=== PATIENT | female | born 1995 | race Two or more races ===

== ENCOUNTER 2019-11-23 17:08 | Emergency (ER) | payer MEDICAID ==
[~2019-11-23] VITALS: Ht 165.1 cm; Wt 102.1 kg
[2019-11-23 18:26] LABS: ALANINE AMINOTRANSFERASE 22 U/L (12-78); ANION GAP 9 mmol/L (5-15); BASOPHILS # (AUTO) 0.04 x10^3/uL (0-0.1); BASOPHILS % (AUTO) 0 % (0-1); CALCIUM 9.2 mg/dL (8.5-10.1); CHLORIDE 106 mmol/L (98-107); EOSINOPHILS # (AUTO) 0.03 x10^3/uL (0-0.4); EOSINOPHILS % (AUTO) 0 % (1-7); LYMPHOCYTES # (AUTO) 2.38 x10^3/uL (1-3.4); LYMPHOCYTES % (AUTO) 19 % (22-44); MD NO; MEAN CORPUSCULAR HEMOGLOBIN 29.9 pg (27.0-34.8); MEAN CORPUSCULAR HGB CONC 33.5 g/dL (32.4-35.8); MEAN CORPUSCULAR VOLUME 89.1 fL (80-100); MEAN PLATELET VOLUME 9.4 fL (7.4-10.4); MONOCYTES # (AUTO) 0.64 x10^3/uL (0.2-0.8); MONOCYTES % (AUTO) 5 % (2-9); NEUTROPHILS # (AUTO) 9.49 x10^3/uL (1.8-6.8); NEUTROPHILS % (AUTO) 75 % (42-75); PLATELET COUNT 306 x10^3/uL (130-400); RED BLOOD COUNT 4.11 x10^6/uL (3.82-5.3); RED CELL DISTRIBUTION WIDTH 14.4 % (9.6-15.2)
[2019-11-23 18:30] LABS: ALKALINE PHOSPHATASE 70 U/L (45-117); BILIRUBIN,TOTAL 0.3 mg/dL (0.2-1.0); TOTAL PROTEIN 7.3 g/dL (6.4-8.2); TROPONIN I < 0.015 ng/mL (0.000-0.045)
[2019-11-23 18:40] LABS: MICROSCOPIC INDICATED
--- NOTE | 2019-11-23 18:45 | NUR ---
PT STATES HELLER, FATIGUE FOR 3 WEEKS WITH OCCASIONAL SHARP PAIN RLQ. YESTERDAY CHEST HEAVINESS DEVELOPED WITH MULTIPLE EPISODES OF FEELING LIKE SHE IS ONLY SEEING BLACK AND CANNOT HEAR ANYTHING.
--- NOTE | 2019-11-23 18:52 | NUR ---
BEDSIDE REPORT FROM KIKO CHERRY
[2019-11-23] MEDS ORDERED: PRE NATAL (19:20)
[2019-11-23] MEDS ORDERED: CEFTRIAXONE PMX 1GM/50ML 50 ML ONE (19:26)
[2019-11-23] MEDS ORDERED: ACETAMINOPHEN 500 MG TABLET ONE (19:26)
[2019-11-23] MEDS ORDERED: ACETAMINOPHEN 500 MG TABLET PO ONE (19:30)
[2019-11-23] MEDS ORDERED: CEFTRIAXONE PMX 1GM/50ML 50 ML IV ONE (19:30)
[2019-11-23] MEDS ORDERED: DIPHENHYDRAMINE 25 MG CAPSULE ONE (19:37)
[2019-11-23] MEDS ORDERED: SODIUM CHLORIDE 0.9% 1,000ML IVBOLUS ONE (20:00)
[2019-11-23] MEDS ORDERED: DIPHENHYDRAMINE 25 MG CAPSULE PO ONE (20:00)
--- NOTE | 2019-11-23 20:18 | NUR ---
I ORDERED LACTIC ACID SEPSIS
[2019-11-23] MEDS ORDERED: ONDANSETRON 2MG/ML, 2ML ONE (20:58)
[2019-11-23] MEDS ORDERED: ONDANSETRON 2MG/ML, 2ML IVPush ONE (21:00)
--- NOTE | 2019-11-23 21:14 | NUR ---
L&D CALLED. TO SEND RN DOWN FOR HEART TONES.
--- NOTE | 2019-11-23 21:34 | NUR ---
L&D DETECTED NO HEART TONES. PT TO CT AT THIS TIME. Addendum: 11/23/19 at 2135 by [facility] L&D KIKO VELASQUEZ
[2019-11-23] MEDS ORDERED: OMNIPAQUE 350 MG/ML, 75ML BOTTLE ONE (21:47)
[2019-11-23 22:39] VITALS: BP 121/61
== END 2019-11-23 23:01 | disposition home or self-care (01) ==
LOC: ED 20:13
DX: O23.12 Infections of bladder in pregnancy, second trimester (principal); R06.00 Dyspnea, unspecified; R07.89 Other chest pain; Z87.891 Personal history of nicotine dependence; Z3A.18 18 weeks gestation of pregnancy
CPT/HCPCS: 36415; 71046; 71275; 76700; 80053; 81001; 83605; 83690; 84484; 85025; 87040; 87086; 93005; 96365; 96366; 96375; 99285; J0696; J2405; J7030; Q0163; Q9967

== ENCOUNTER 2020-01-22 20:41 | Outpatient (CLI) | payer MEDICAID ==
[~2020-01-22] VITALS: Ht 165.1 cm; Wt 101.0 kg
[~2020-01-22 20:41] MED LIST: PRE NATAL
[2020-01-22 21:31] LABS: MICROSCOPIC INDICATED
== END 2020-01-22 22:00 | disposition home or self-care (01) ==
LOC: LDOP 20:41
PROVIDERS: ATTEND Obstetrics & Gynecology
DX: O16.2 Unspecified maternal hypertension, second trimester (principal); Z3A.26 26 weeks gestation of pregnancy
CPT/HCPCS: 81001; 82570; 84156; 87086; 99211; G0463

== ENCOUNTER 2020-04-10 13:06 | Inpatient (IN) | payer MEDICAID ==
[~2020-04-10] VITALS: Ht 165.1 cm; Wt 104.5 kg
[2020-04-10 13:45] VITALS: BP 131/87
[2020-04-10 14:03] LABS: BASOPHILS % (AUTO) 0 % (0-1); EOSINOPHILS % (AUTO) 1 % (1-7); LYMPHOCYTES % (AUTO) 18 % (22-44); MEAN CORPUSCULAR HEMOGLOBIN 27.2 pg (27.0-34.8); MEAN PLATELET VOLUME 9.6 fL (7.4-10.4); MONOCYTES % (AUTO) 8 % (2-9); NEUTROPHILS % (AUTO) 74 % (42-75); PLATELET COUNT 267 x10^3/uL (130-400); RED BLOOD COUNT 3.91 x10^6/uL (3.82-5.3); RED CELL DISTRIBUTION WIDTH 14.9 % (9.6-15.2)
[2020-04-10 14:06] LABS: MD NO
[2020-04-10 14:07] LABS: ALANINE AMINOTRANSFERASE 11 U/L (12-78); ALBUMIN 2.7 g/dL (3.4-5.0); ANION GAP 6 mmol/L (5-15); CALCIUM 9.5 mg/dL (8.5-10.1); CHLORIDE 113 mmol/L (98-107); CREATININE 0.51 mg/dL (0.55-1.02)
[2020-04-10 14:09] LABS: ALKALINE PHOSPHATASE 154 U/L (45-117); BILIRUBIN,TOTAL 0.3 mg/dL (0.2-1.0); TOTAL PROTEIN 6.9 g/dL (6.4-8.2)
[2020-04-10 14:43] LABS: MICROSCOPIC INDICATED
[2020-04-10] MEDS ORDERED: MISOPROSTOL 25 MCG TABLET ONE ×2 (16:36→21:55)
[2020-04-10] MEDS ORDERED: LIDOCAINE 1%, 20ML ONE ×2 (16:36→16:38)
[2020-04-10] MEDS ORDERED: MISOPROSTOL 200 MCG TABLET ONE (16:36)
[2020-04-10] MEDS ORDERED: NEWBORN KIT ONE (16:36)
[2020-04-10] MEDS ORDERED: OXYTOCIN 30U/ 0.9% NaCL 500ML 500 ML ONE (16:37)
[2020-04-10] MEDS ORDERED: MISOPROSTOL 25 MCG TABLET VG PRN ×2 (18:30→22:00)
[2020-04-10] MEDS ORDERED: FENTANYL PF 100 MCG/2ML IV PRN (18:30)
[2020-04-10] MEDS: LACTATED RINGERS 1,000 ML IV SCH (18:30)
[2020-04-10] MEDS ORDERED: FENTANYL PF 100 MCG/2ML IVPush PRN (18:30)
[2020-04-10] MEDS ORDERED: OXYTOCIN 30U/ 0.9% NaCL 500ML 500 ML IV PRN ×2 (18:30)
[2020-04-10] MEDS ORDERED: SODIUM CHLORIDE FLUSH 10ML SYR IVF PRN (18:30)
[2020-04-10] MEDS ORDERED: TERBUTALINE 1 MG/ML, 1ML IVPush PRN (18:30)
[2020-04-10] MEDS ORDERED: TERBUTALINE 1 MG/ML, 1ML SQ PRN (18:30)
[2020-04-10] MEDS ORDERED: OXYTOCIN 30U/ 0.9% NaCL 500ML 500 ML IV ONE (18:30)
[2020-04-10] MEDS ORDERED: ACYCLOVIR 400 MG TABLET ONE (20:24)
[2020-04-10] MEDS: ACYCLOVIR 800 MG TABLET PO SCH (20:27)
[2020-04-10] MEDS ORDERED: INSULIN GLARGINE 100 UNITS/ML, PEN SQ-INSULIN SCH (21:00)
[2020-04-10] MEDS ORDERED: VALACYCLOVIR 500MG TABLET PO SCH (21:00)
[2020-04-11] MEDS: LACTATED RINGERS 1,000 ML IV SCH (02:30)
[2020-04-11] MEDS ORDERED: FENTANYL PF 100 MCG/2ML ONE (02:38)
[2020-04-11] MEDS ORDERED: FENTANYL/BUPIV./NS/PF 250 ML EPIDCONT ONE (03:15)
[2020-04-11] MEDS ORDERED: BUPIVACAINE 0.25% ONE (03:15)
[2020-04-11] MEDS ORDERED: HYDROcodone/APAP 5/325 TABLET PO PRN (06:00)
[2020-04-11] MEDS ORDERED: MEASLES,MUMPS&RUBELLA VACC/PF 0.5 ML SQ-VACC PRN (06:00)
[2020-04-11] MEDS ORDERED: RHOGAM FROM BLOOD BANK 1 NOTE EA IM/IV ONE (06:00)
[2020-04-11] MEDS ORDERED: OXYTOCIN 30U/ 0.9% NaCL 500ML 500 ML IV SCH (06:00)
[2020-04-11] MEDS ORDERED: MISOPROSTOL 200 MCG TABLET PR PRN (06:00)
[2020-04-11] MEDS ORDERED: ACETAMINOPHEN 325 MG TABLET PO PRN ×2 (06:00)
[2020-04-11] MEDS ORDERED: MAGNESIUM HYDROXIDE 8%, 30ML UDC PO PRN (06:00)
[2020-04-11] MEDS ORDERED: ONDANSETRON 2MG/ML, 2ML IVPush PRN (07:00)
[2020-04-11] MEDS ORDERED: FENTANYL/BUPIV./NS/PF 250 ML EPIDCONT SCH (07:00)
[2020-04-11] MEDS ORDERED: LACTATED RINGERS 1,000 ML IV SCH (07:00)
[2020-04-11] MEDS ORDERED: LACTATED RINGERS 1,000 ML IVBOLUS PRN (07:00)
[2020-04-11] MEDS ORDERED: DIPHENHYDRAMINE 50 MG/ML, 1ML IVPush PRN (07:00)
[2020-04-11] MEDS ORDERED: EPHEDRINE 50 MG/ML, 1ML IVPush PRN (07:00)
[2020-04-11] MEDS ORDERED: NALOXONE 0.4 MG/ML, 1ML IVPush PRN (07:00)
[2020-04-11 07:30] VITALS: BP 132/84
[2020-04-11] MEDS: IBUPROFEN 600 MG TABLET PO PRN ×3 (07:46→20:45)
[2020-04-11] MEDS: DOCUSATE 100 MG CAPSULE PO PRN (07:46)
[2020-04-11] MEDS: HYDROcodone/APAP 5/325 TABLET PO PRN ×2 (07:46→20:45)
[2020-04-11] MEDS: PRENATAL VIT/IRON/FA 1 EACH TABLET PO SCH (07:47)
[2020-04-11] MEDS: ACYCLOVIR 800 MG TABLET PO SCH (09:00)
[2020-04-11] MEDS: LEVOTHYROXINE 88 MCG TABLET PO SCH (09:24)
[2020-04-11 12:30] VITALS: BP_SYST 100; BP_SYST 117; BP_DIAS 65; BP_DIAS 75
[2020-04-11 13:25] LABS: BASOPHILS % (AUTO) 0 % (0-1); EOSINOPHILS % (AUTO) 0 % (1-7); LYMPHOCYTES % (AUTO) 15 % (22-44); MEAN CORPUSCULAR HEMOGLOBIN 27.5 pg (27.0-34.8); MEAN CORPUSCULAR HGB CONC 32.4 g/dL (32.4-35.8); MEAN PLATELET VOLUME 9.5 fL (7.4-10.4); MONOCYTES % (AUTO) 7 % (2-9); NEUTROPHILS % (AUTO) 78 % (42-75); PLATELET COUNT 250 x10^3/uL (130-400); RED BLOOD COUNT 3.69 x10^6/uL (3.82-5.3); RED CELL DISTRIBUTION WIDTH 15.1 % (9.6-15.2)
[2020-04-11 13:33] LABS: MD NO
[2020-04-11 16:00] VITALS: BP 133/86
[2020-04-11 20:00] VITALS: BP 121/76
[2020-04-12 01:00] VITALS: BP 124/74
[2020-04-12 04:40] VITALS: BP 134/88
[2020-04-12] MEDS: IBUPROFEN 600 MG TABLET PO PRN ×3 (04:40→17:43)
[2020-04-12] MEDS: HYDROcodone/APAP 5/325 TABLET PO PRN ×3 (04:40→14:44)
[2020-04-12] MEDS: LEVOTHYROXINE 88 MCG TABLET PO SCH (04:43)
[2020-04-12 07:30] VITALS: BP 115/75
[2020-04-12] MEDS: DOCUSATE 100 MG CAPSULE PO PRN (08:07)
[2020-04-12] MEDS: PRENATAL VIT/IRON/FA 1 EACH TABLET PO SCH (08:07)
[2020-04-12] MEDS ORDERED: HYDR-3240 PO (13:57)
[2020-04-12] MEDS ORDERED: IBUP-1222 PO (13:57)
[2020-04-12] MEDS ORDERED: LEVO88TA4 PO (13:58)
[2020-04-12 19:50] VITALS: BP 123/81
[2020-04-13] MEDS: LEVOTHYROXINE 88 MCG TABLET PO SCH (06:19)
[2020-04-13 08:00] VITALS: BP 136/88
[2020-04-13] MEDS: IBUPROFEN 600 MG TABLET PO PRN (08:08)
[2020-04-13] MEDS: PRENATAL VIT/IRON/FA 1 EACH TABLET PO SCH (08:08)
[2020-04-13] MEDS ORDERED: DIPH,PERTUSS(ACELL),TET VAC/PF NC IM-VACC ONE (11:00)
== END 2020-04-13 12:35 | disposition home or self-care (01) | DRG 807 ==
LOC: LDOP 13:06 → LDIP 15:55 → 2NW 04-11 07:25
PROVIDERS: ADMIT Obstetrics & Gynecology; ATTEND Obstetrics & Gynecology
PROC: 10E0XZZ Delivery of Products of Conception, External Approach (ICD-10-PCS; principal; 2020-04-11)
PROC: 3E033VJ Introduction of Other Hormone into Peripheral Vein, Percutaneous Approach (ICD-10-PCS; 2020-04-11)
PROC: 3E0R3BZ Introduction of Anesthetic Agent into Spinal Canal, Percutaneous Approach (ICD-10-PCS; 2020-04-11)
PROC: 00HU33Z Insertion of Infusion Device into Spinal Canal, Percutaneous Approach (ICD-10-PCS; 2020-04-11)
DX: O13.4 Gestational [pregnancy-induced] hypertension without significant proteinuria, complicating childbirth (principal); Z37.0 Single live birth; O24.424 Gestational diabetes mellitus in childbirth, insulin controlled; O69.81X0 Labor and delivery complicated by cord around neck, without compression, not applicable or unspecified; J45.909 Unspecified asthma, uncomplicated; E03.9 Hypothyroidism, unspecified; O99.284 Endocrine, nutritional and metabolic diseases complicating childbirth; Z20.828 Contact with and (suspected) exposure to other viral communicable diseases; O99.52 Diseases of the respiratory system complicating childbirth; Z3A.38 38 weeks gestation of pregnancy
CPT/HCPCS: 36415; 80053; 81001; 82570; 82962; 84156; 84550; 85025; 86592; 86850; 86900; 87635; 90715; G0378; J1815

== ENCOUNTER 2020-12-07 12:31 | Emergency (ER) | payer MEDICAID ==
[~2020-12-07] VITALS: Ht 165.1 cm; Wt 104.6 kg
[~2020-12-07 12:31] MED LIST changes: +HYDR-2214 PO; +IBUP-1222 PO; +LEVO88TA4 PO
[2020-12-07 13:05] LABS: MICROSCOPIC AUTO
--- NOTE | 2020-12-07 13:31 | NUR ---
patient to room from lobby
[2020-12-07] MEDS ORDERED: ONDANSETRON ODT 4 MG ONE (14:20)
--- NOTE | 2020-12-07 14:23 | NUR ---
PT RESTING CALMLY IN BED AT THIS TIME IN [facility]PITAL GOWN. PT MEDICATED FOR [place] PER EMAR. PT AWARE OF US COMING. LAB HAS JUST DRAWN PT.
[2020-12-07 14:30] LABS: BASOPHILS % (AUTO) 1 % (0-1); EOSINOPHILS % (AUTO) 2 % (1-7); LYMPHOCYTES % (AUTO) 31 % (22-44); MEAN CORPUSCULAR HEMOGLOBIN 31.7 pg (27.0-34.8); MEAN CORPUSCULAR HGB CONC 34.5 g/dL (32.4-35.8); MEAN PLATELET VOLUME 8.5 fL (7.4-10.4); MONOCYTES % (AUTO) 7 % (2-9); NEUTROPHILS % (AUTO) 60 % (42-75); PLATELET COUNT 372 x10^3/uL (130-400); RED BLOOD COUNT 4.41 x10^6/uL (3.82-5.3); RED CELL DISTRIBUTION WIDTH 14.4 % (9.6-15.2)
[2020-12-07] MEDS ORDERED: ONDANSETRON 2MG/ML, 2ML IVPush ONE (14:30)
[2020-12-07 14:38] LABS: HCG UR SG 1.048 (1.003-1.030)
[2020-12-07 14:38] LABS: ALANINE AMINOTRANSFERASE 19 U/L (12-78); ALBUMIN 4.1 g/dL (3.4-5.0); ANION GAP 7 mmol/L (5-15); CALCIUM 8.9 mg/dL (8.5-10.1); CHLORIDE 108 mmol/L (98-107); CREATININE 0.79 mg/dL (0.55-1.02)
[2020-12-07 14:40] LABS: ALKALINE PHOSPHATASE 82 U/L (45-117); BILIRUBIN,TOTAL 0.7 mg/dL (0.2-1.0); TOTAL PROTEIN 8.3 g/dL (6.4-8.2)
--- NOTE | 2020-12-07 14:47 | NUR ---
[email or web address] Care assumed.
--- NOTE | 2020-12-07 14:47 | NUR ---
Rochelle benito in [facility] - 12/07/20 at 1447 by ANA .
--- NOTE | 2020-12-07 15:05 | NUR ---
U/S at bedside. This RN at bedside as landing man
[2020-12-07 15:06] VITALS: BP 124/65
--- NOTE | 2020-12-07 16:54 | NUR ---
pt left AMA. Discussed risk of leaving AMA and benefits of staying. pt verbalized understanding. Informed Dr. Rooney of pts wishes. pt signed AMA paperwork. Attached to chart. pt left ED with a steady gait and all personal belongings.
== END 2020-12-07 18:18 | disposition left against medical advice (07) ==
LOC: ED 13:01
DX: R10.2 Pelvic and perineal pain (principal)
CPT/HCPCS: 36415; 76830; 80053; 81001; 81025; 85025; 87086; 96374; 99284; J2405

== ENCOUNTER 2021-02-20 12:56 | Inpatient (IN) | payer MEDICAID ==
[~2021-02-20] VITALS: Ht 165.1 cm; Wt 103.8 kg
[2021-02-20] MEDS ORDERED: DEXAMETHASONE 4 MG TABLET PO ONE (13:30)
--- NOTE | 2021-02-20 15:58 | NUR ---
deportation examiner note: Pt to room from lobby.
[2021-02-20] MEDS ORDERED: DEXAMETHASONE 4 MG TABLET ONE (16:14)
--- NOTE | 2021-02-20 17:33 | NUR ---
PT PLACED ON 2 LPM VIA NC DUE TO RA SPO2 OF 88% AND PT INCREASING SOB.
[2021-02-20] MEDS ORDERED: SODIUM CHLORIDE 0.9% 1,000ML IVBOLUS ONE (18:00)
[2021-02-20] MEDS ORDERED: SODIUM CHLORIDE FLUSH 10ML SYR IVF ONE (18:00)
[2021-02-20] MEDS ORDERED: AZITHROMYCIN 500 MG in SODIUM CHLORIDE 0.9% 250 ML IV ONE (18:00)
[2021-02-20] MEDS ORDERED: CEFTRIAXONE 1,000 MG in DEXTROSE 5% 50 ML IVPB ONE (18:00)
[2021-02-20] MEDS ORDERED: HYDROcodone/APAP 5/325 TABLET PO STA (18:09)
[2021-02-20 18:13] LABS: BASOPHILS % (AUTO) 0 % (0-1); EOSINOPHILS % (AUTO) 0 % (1-7); LYMPHOCYTES % (AUTO) 18 % (22-44); MEAN CORPUSCULAR HEMOGLOBIN 29.8 pg (27.0-34.8); MEAN CORPUSCULAR HGB CONC 33.9 g/dL (32.4-35.8); MEAN PLATELET VOLUME 8.6 fL (7.4-10.4); MONOCYTES % (AUTO) 7 % (2-9); NEUTROPHILS % (AUTO) 75 % (42-75); PLATELET COUNT 285 x10^3/uL (130-400); RED BLOOD COUNT 4.36 x10^6/uL (3.82-5.3); RED CELL DISTRIBUTION WIDTH 13.1 % (9.6-15.2)
[2021-02-20 18:19] LABS: ALBUMIN 3.6 g/dL (3.4-5.0); ANION GAP 9 mmol/L (5-15); CALCIUM 8.7 mg/dL (8.5-10.1); CHLORIDE 104 mmol/L (98-107); CREATININE 0.77 mg/dL (0.55-1.02)
[2021-02-20] MEDS ORDERED: HYDROcodone/APAP 5/325 TABLET ONE (18:22)
--- NOTE | 2021-02-20 18:50 | NUR ---
Patient is resting comfortably in bed. Bed in lowest, rails engaged, call light on lap. Vital Signs within normal limits. WCTM.
--- NOTE | 2021-02-20 20:20 | NUR ---
Patient is resting comfortably in bed. Bed in lowest, rails engaged, call light on lap. Vital Signs within normal limits. WCTM. pt concerned about breast feeding baby and not having equipment here.
--- NOTE | 2021-02-20 21:46 | NUR ---
PT BROUGHT PT BREAST FEEDING TOOLS AND IN IN OUT FOOD. PT APPEARS HAPPY, PT IN NAD. VSS. WCTM
--- NOTE | 2021-02-20 21:59 | NUR ---
PT DOES NOT TAKE RX MEDS. NO MED REC
--- NOTE | 2021-02-20 23:55 | NUR ---
COMMODE BROUGHT INTO ROOM SO PT CAN USE RESTROOM. NADN. HARPER
--- NOTE | 2021-02-21 00:21 | NUR ---
PT USED COMMODE AND URINATED UNMEASURED. PT BACK IN BED. REATTACHED TO MONITORS. VSS PTY TALKING TO FRIEND VIA FT ON PHONE. LEROY
[2021-02-21] MEDS ORDERED: ONDANSETRON 2MG/ML, 2ML IVPush PRN (01:00)
[2021-02-21] MEDS ORDERED: LABETALOL 5MG/ML, 20ML IVPush PRN (01:00)
[2021-02-21] MEDS ORDERED: ACETAMINOPHEN 325 MG TABLET PO PRN (01:00)
[2021-02-21 01:27] LABS: HCT (SEDRATE) 36.6 % (34.6-47.8)
[2021-02-21 01:48] LABS: C-REACTIVE PROTEIN, QUANT 6.6 mg/dL (0.02-0.49)
[2021-02-21] MEDS ORDERED: OMNIPAQUE 350 MG/ML, 100ML BOTTLE ONE (02:13)
[2021-02-21] MEDS ORDERED: ENOXAPARIN 40 MG/0.4 ML ONE (03:36)
--- NOTE | 2021-02-21 03:44 | NUR ---
PT TRANSFERRED [facility] BED. REATTCAHED TO ALL MONITORS AND O2 APPLIED PT TOLERATED WELL. NADN. HARPER
[2021-02-21] MEDS: ENOXAPARIN 30 MG/0.3 ML SQ SCH ×2 (03:47→17:23)
[2021-02-21 05:26] LABS: BASOPHILS % (AUTO) 0 % (0-1); EOSINOPHILS % (AUTO) 0 % (1-7); LYMPHOCYTES % (AUTO) 24 % (22-44); MEAN CORPUSCULAR HEMOGLOBIN 29.8 pg (27.0-34.8); MONOCYTES % (AUTO) 8 % (2-9); NEUTROPHILS % (AUTO) 68 % (42-75); PLATELET COUNT 259 x10^3/uL (130-400); RED BLOOD COUNT 4.08 x10^6/uL (3.82-5.3); RED CELL DISTRIBUTION WIDTH 13.1 % (9.6-15.2)
--- NOTE | 2021-02-21 05:32 | NUR ---
PT SLEEPING IN BED, EYES CLOSED. BREATHING EVEN AND UNLABORED. NADN. HARPER
[2021-02-21 05:39] LABS: ANION GAP 7 mmol/L (5-15); CALCIUM 8.8 mg/dL (8.5-10.1); CHLORIDE 109 mmol/L (98-107)
[2021-02-21 05:41] LABS: CREATININE 0.53 mg/dL (0.55-1.02)
--- NOTE | 2021-02-21 06:51 | NUR ---
Took report from Kashif Reyes RN, assume care at this time.
--- NOTE | 2021-02-21 07:04 | NUR ---
GAVE REPORT TO ISABELLA HOOVER. TRANSFER OF CARE.
--- NOTE | 2021-02-21 07:36 | NUR ---
ED DIET ORDERED
[2021-02-21] MEDS ORDERED: BENZONATATE 100 MG CAPSULE ONE ×2 (07:49→15:43)
[2021-02-21] MEDS: BENZONATATE 100 MG CAPSULE PO/NG PRN ×2 (08:01→15:45)
[2021-02-21] MEDS ORDERED: ASCORBIC ACID 500 MG TABLET ONE ×2 (08:13→22:39)
[2021-02-21] MEDS ORDERED: THIAMINE 100MG TABLET ONE (08:13)
[2021-02-21] MEDS ORDERED: DEXAMETHASONE 4 MG/ML, 1ML ONE (08:13)
[2021-02-21] MEDS ORDERED: CHOLECALCIFEROL 1,000 UNIT TABLET ONE (08:14)
[2021-02-21] MEDS ORDERED: ZINC SULFATE 220 MG CAPSULE ONE (08:14)
[2021-02-21] MEDS: CHOLECALCIFEROL 1,000 UNIT TABLET PO SCH (08:21)
[2021-02-21] MEDS: THIAMINE 100MG TABLET PO SCH (08:21)
[2021-02-21] MEDS: ZINC SULFATE 220 MG CAPSULE PO SCH (08:21)
[2021-02-21] MEDS: ASCORBIC ACID 500 MG TABLET PO SCH ×2 (08:22→22:58)
[2021-02-21] MEDS: DEXAMETHASONE 4 MG/ML, 1ML IVPush SCH (08:27)
[2021-02-21] MEDS ORDERED: HYDROcodone/APAP 5/325 TABLET ONE (15:44)
[2021-02-21] MEDS: HYDROcodone/APAP 5/325 TABLET PO PRN (15:45)
[2021-02-21 17:15] LABS: ALANINE AMINOTRANSFERASE 17 U/L (12-78)
[2021-02-21 17:17] LABS: ALKALINE PHOSPHATASE 67 U/L (45-117); BILIRUBIN,TOTAL 0.2 mg/dL (0.2-1.0); TOTAL PROTEIN 7.8 g/dL (6.4-8.2)
[2021-02-21 17:19] VITALS: BP 116/74
[2021-02-21 17:25] LABS: BILIRUBIN, DIRECT < 0.1 mg/dL (0.1-0.2); BILIRUBIN,INDIRECT 0.1 mg/dL (0.0-2.0)
[2021-02-21] MEDS ORDERED: REMDESIVIR 200 MG in SODIUM CHLORIDE 0.9% 100 ML IVPB ONE (19:30)
[2021-02-21] MEDS ORDERED: MELATONIN 5 MG TABLET ONE (22:39)
[2021-02-21] MEDS: MELATONIN 5 MG TABLET PO SCH ×2 (22:58→23:00)
[2021-02-21 23:10] VITALS: BP 120/72
[2021-02-22] MEDS: CEFTRIAXONE 1,000 MG in DEXTROSE 5% 50 ML IVPB SCH (00:57)
[2021-02-22] MEDS: AZITHROMYCIN 500 MG in SODIUM CHLORIDE 0.9% 250 ML IV SCH (01:59)
[2021-02-22 02:00] VITALS: BP 140/80
[2021-02-22] MEDS ORDERED: NAPR-856 PO (02:16)
[2021-02-22] MEDS: ENOXAPARIN 30 MG/0.3 ML SQ SCH ×2 (05:59→17:03)
[2021-02-22] MEDS ORDERED: BENZONATATE 100 MG CAPSULE ONE (06:03)
[2021-02-22] MEDS: BENZONATATE 100 MG CAPSULE PO/NG PRN (06:07)
[2021-02-22 07:14] LABS: CHLORIDE 105 mmol/L (98-107)
[2021-02-22 07:16] LABS: BASOPHILS % (AUTO) 0 % (0-1); EOSINOPHILS % (AUTO) 0 % (1-7); HCT (SEDRATE) 37.3 % (34.6-47.8); LYMPHOCYTES % (AUTO) 18 % (22-44); MEAN CORPUSCULAR HEMOGLOBIN 29.6 pg (27.0-34.8); MEAN CORPUSCULAR HGB CONC 33.4 g/dL (32.4-35.8); MEAN PLATELET VOLUME 9.3 fL (7.4-10.4); MONOCYTES % (AUTO) 9 % (2-9); NEUTROPHILS % (AUTO) 73 % (42-75); PLATELET COUNT 346 x10^3/uL (130-400); RED BLOOD COUNT 4.21 x10^6/uL (3.82-5.3)
[2021-02-22 07:28] LABS: ALANINE AMINOTRANSFERASE 17 U/L (12-78); ALBUMIN 3.1 g/dL (3.4-5.0); ALKALINE PHOSPHATASE 63 U/L (45-117); ANION GAP 7 mmol/L (5-15); BILIRUBIN,TOTAL 0.2 mg/dL (0.2-1.0); CALCIUM 8.6 mg/dL (8.5-10.1); CREATININE 0.58 mg/dL (0.55-1.02); TOTAL PROTEIN 7.6 g/dL (6.4-8.2)
[2021-02-22] MEDS ORDERED: ASCORBIC ACID 500 MG TABLET ONE (09:17)
[2021-02-22] MEDS ORDERED: DEXAMETHASONE 4 MG/ML, 1ML ONE (09:17)
[2021-02-22] MEDS ORDERED: ZINC SULFATE 220 MG CAPSULE ONE (09:17)
[2021-02-22] MEDS ORDERED: CHOLECALCIFEROL 1,000 UNIT TABLET ONE (09:17)
[2021-02-22] MEDS ORDERED: THIAMINE 100MG TABLET ONE (09:18)
[2021-02-22 09:28] VITALS: BP 127/62
[2021-02-22] MEDS: DEXAMETHASONE 4 MG/ML, 1ML IVPush SCH (09:33)
[2021-02-22] MEDS: CHOLECALCIFEROL 1,000 UNIT TABLET PO SCH (09:36)
[2021-02-22] MEDS: ASCORBIC ACID 500 MG TABLET PO SCH ×2 (09:36→17:02)
[2021-02-22] MEDS: ZINC SULFATE 220 MG CAPSULE PO SCH (09:36)
[2021-02-22] MEDS: THIAMINE 100MG TABLET PO SCH (09:36)
[2021-02-22] MEDS ORDERED: HYDROcodone/APAP 5/325 TABLET ONE (09:47)
[2021-02-22] MEDS: HYDROcodone/APAP 5/325 TABLET PO PRN ×2 (09:52→18:07)
--- NOTE | 2021-02-22 12:40 | NUR ---
Lunch tray provided for pt.
[2021-02-22 14:05] VITALS: BP 118/75
[2021-02-22 15:44] VITALS: BP 141/74
[2021-02-22 18:48] VITALS: BP 127/85
[2021-02-22] MEDS ORDERED: REMDESIVIR 100 MG in SODIUM CHLORIDE 0.9% 100 ML IVPB SCH (19:30)
[2021-02-22] MEDS: MELATONIN 5 MG TABLET PO SCH (21:47)
[2021-02-23] MEDS: CEFTRIAXONE 1,000 MG in DEXTROSE 5% 50 ML IVPB SCH (00:47)
[2021-02-23] MEDS: AZITHROMYCIN 500 MG in SODIUM CHLORIDE 0.9% 250 ML IV SCH (01:40)
[2021-02-23 01:52] VITALS: BP 129/90
[2021-02-23 04:47] LABS: BASOPHILS % (AUTO) 0 % (0-1); EOSINOPHILS % (AUTO) 0 % (1-7); LYMPHOCYTES % (AUTO) 21 % (22-44); MEAN CORPUSCULAR HEMOGLOBIN 29.7 pg (27.0-34.8); MEAN CORPUSCULAR HGB CONC 33.9 g/dL (32.4-35.8); MEAN PLATELET VOLUME 9.1 fL (7.4-10.4); MONOCYTES % (AUTO) 10 % (2-9); NEUTROPHILS % (AUTO) 69 % (42-75); PLATELET COUNT 311 x10^3/uL (130-400); RED BLOOD COUNT 4.15 x10^6/uL (3.82-5.3)
[2021-02-23 04:58] LABS: ALANINE AMINOTRANSFERASE 18 U/L (12-78); ALBUMIN 2.7 g/dL (3.4-5.0); ANION GAP 4 mmol/L (5-15); CALCIUM 8.2 mg/dL (8.5-10.1); CHLORIDE 105 mmol/L (98-107); CREATININE 0.55 mg/dL (0.55-1.02)
[2021-02-23] MEDS: ENOXAPARIN 30 MG/0.3 ML SQ SCH (05:04)
[2021-02-23 05:05] LABS: ALKALINE PHOSPHATASE 63 U/L (45-117); BILIRUBIN,TOTAL 0.5 mg/dL (0.2-1.0); TOTAL PROTEIN 7.2 g/dL (6.4-8.2)
[2021-02-23 09:05] VITALS: BP 125/86
[2021-02-23] MEDS: CHOLECALCIFEROL 1,000 UNIT TABLET PO SCH (09:24)
[2021-02-23] MEDS: ZINC SULFATE 220 MG CAPSULE PO SCH (09:24)
[2021-02-23] MEDS: DEXAMETHASONE 4 MG/ML, 1ML IVPush SCH (09:24)
[2021-02-23] MEDS: ASCORBIC ACID 500 MG TABLET PO SCH (09:24)
[2021-02-23] MEDS: THIAMINE 100MG TABLET PO SCH (09:24)
[2021-02-23] MEDS ORDERED: PRED20TA PO (10:23)
== END 2021-02-23 13:35 | disposition home or self-care (01) | DRG 177 ==
LOC: ED 14:47 → EDIP 20:19 → 3N 02-22 14:34
PROVIDERS: ADMIT Emergency Medicine; ATTEND Family Medicine
PROC: XW033E5 Introduction of Remdesivir Anti-infective into Peripheral Vein, Percutaneous Approach, New Technology Group 5 (ICD-10-PCS; principal; 2021-02-21)
DX: U07.1 COVID-19 (principal); J12.82 Pneumonia due to coronavirus disease 2019; J96.01 Acute respiratory failure with hypoxia; J45.901 Unspecified asthma with (acute) exacerbation; E03.9 Hypothyroidism, unspecified; E66.9 Obesity, unspecified; Z88.0 Allergy status to penicillin; Z88.8 Allergy status to other drugs, medicaments and biological substances; Z68.37 Body mass index [BMI] 37.0-37.9, adult
CPT/HCPCS: 36415; 71045; 71275; 80048; 80053; 80076; 82040; 82728; 83605; 83615; 84145; 84443; 85025; 85379; 85651; 86140; 87040; 87081; 93005; 96365; 99285; G0378; J0456; J0696; J1100; J1650; Q9967; U0005; J7030; J7050; U0003